=== PATIENT | male | born 1970 | race Caucasian/White ===

== ENCOUNTER 2019-07-13 15:06 | Inpatient (IN) | payer OTHER ==
[~2019-07-13] VITALS: Ht 175.3 cm; Wt 86.5 kg
[2019-07-13] MEDS ORDERED: HYDROcodone/APAP 5/325 TABLET PO PRN (16:00)
[2019-07-13] MEDS ORDERED: GABAPENTIN 300 MG CAPSULE PO PRN (16:00)
[2019-07-13] MEDS ORDERED: ONDANSETRON 2MG/ML, 2ML IVPush PRN (16:00)
[2019-07-13] MEDS ORDERED: morphine SULFATE 10 MG/ML, 1ML IVPush PRN (16:00)
[2019-07-13] MEDS ORDERED: ONDANSETRON ODT 4 MG PO PRN (16:00)
[2019-07-13] MEDS ORDERED: hydrALAzine 20 MG/ML, 1ML IVPush PRN (16:00)
[2019-07-13] MEDS ORDERED: BACLOFEN 10 MG TABLET PO PRN (16:00)
[2019-07-13] MEDS ORDERED: PLEASE ENTER HEIGHT AND WEIGHT MC SCH (16:30)
[2019-07-13 16:33] VITALS: BP 159/100
[2019-07-13 16:49] LABS: BASOPHILS # (AUTO) 0.02 x10^3/uL (0-0.1); BASOPHILS % (AUTO) 0 % (0-1); EOSINOPHILS # (AUTO) 0.22 x10^3/uL (0-0.4); EOSINOPHILS % (AUTO) 4 % (1-7); LYMPHOCYTES # (AUTO) 1.77 x10^3/uL (1-3.4); LYMPHOCYTES % (AUTO) 29 % (22-44); MD NO; MEAN CORPUSCULAR HEMOGLOBIN 30.5 pg (27.5-34.5); MEAN CORPUSCULAR HGB CONC 33.7 g/dL (33.2-36.2); MEAN CORPUSCULAR VOLUME 90.7 fL (81-97); MEAN PLATELET VOLUME 7.8 fL (7.4-10.4); MONOCYTES # (AUTO) 0.36 x10^3/uL (0.2-0.8); MONOCYTES % (AUTO) 6 % (2-9); NEUTROPHILS # (AUTO) 3.85 x10^3/uL (1.8-6.8); NEUTROPHILS % (AUTO) 62 % (42-75); PLATELET COUNT 307 x10^3/uL (130-400); RED CELL DISTRIBUTION WIDTH 13.7 % (9.4-14.8)
[2019-07-13 16:59] LABS: INTERNATIONAL NORMALIZED RATIO 1.02 (0.93-1.1); PROTHROMBIN TIME 10.8 Seconds (9.6-11.5)
[2019-07-13 17:00] LABS: ALANINE AMINOTRANSFERASE 29 U/L (12-78); ALBUMIN 4.5 g/dL (3.4-5.0); ANION GAP 5 mmol/L (5-15); CALCIUM 9.5 mg/dL (8.5-10.1); CHLORIDE 104 mmol/L (98-107); CREATININE 1.07 mg/dL (0.7-1.3)
[2019-07-13 17:03] LABS: ALKALINE PHOSPHATASE 86 U/L (45-117); BILIRUBIN,TOTAL 0.5 mg/dL (0.2-1.0); TOTAL PROTEIN 8.4 g/dL (6.4-8.2)
[2019-07-13 17:27] LABS: CULTURE INDICATED? NO; MICROSCOPIC NOT IND
[2019-07-13 19:04] VITALS: BP 136/96
[2019-07-13] MEDS ORDERED: OMNIPAQUE 350 MG/ML, 100ML BOTTLE ONE (20:07)
[2019-07-14 02:53] VITALS: BP 137/89
[2019-07-14 06:50] VITALS: BP 146/93
[2019-07-14] MEDS ORDERED: GADOTERATE 10 MMOL/20 ML SYR ONE (09:16)
[2019-07-14] MEDS ORDERED: MIDAZOLAM 1 MG/ML, 5ML ONE (09:36)
[2019-07-14] MEDS ORDERED: FENTANYL PF 100 MCG/2ML ONE (09:36)
[2019-07-14] MEDS ORDERED: NALOXONE 1 MG/ML, 2ML ONE (09:37)
[2019-07-14] MEDS ORDERED: FLUMAZENIL 0.1 MG/1 ML, 5ML ONE (09:37)
[2019-07-14] MEDS ORDERED: POLYETHYLENE GLYCOL 17 GM PACKET PO PRN (11:30)
[2019-07-14] MEDS ORDERED: SENNA/DOCUSATE TABLET PO PRN (11:30)
[2019-07-14 13:14] VITALS: BP 136/83
[2019-07-14] MEDS: ACETAMINOPHEN 325 MG TABLET PO PRN (18:01)
[2019-07-14] MEDS ORDERED: BISACODYL 10 MG SUPP ONE (19:41)
[2019-07-14 19:46] VITALS: BP 142/73
[2019-07-14] MEDS ORDERED: BISACODYL 10 MG SUPP PR PRN (20:00)
[2019-07-15 02:15] VITALS: BP 142/95
[2019-07-15 04:35] LABS: BASOPHILS # (AUTO) 0.02 x10^3/uL (0-0.1); BASOPHILS % (AUTO) 0 % (0-1); EOSINOPHILS # (AUTO) 0.23 x10^3/uL (0-0.4); EOSINOPHILS % (AUTO) 4 % (1-7); LYMPHOCYTES # (AUTO) 1.83 x10^3/uL (1-3.4); LYMPHOCYTES % (AUTO) 32 % (22-44); MD NO; MEAN CORPUSCULAR HEMOGLOBIN 30.4 pg (27.5-34.5); MEAN CORPUSCULAR HGB CONC 33.5 g/dL (33.2-36.2); MEAN CORPUSCULAR VOLUME 90.7 fL (81-97); MEAN PLATELET VOLUME 7.5 fL (7.4-10.4); MONOCYTES # (AUTO) 0.37 x10^3/uL (0.2-0.8); MONOCYTES % (AUTO) 7 % (2-9); NEUTROPHILS # (AUTO) 3.27 x10^3/uL (1.8-6.8); NEUTROPHILS % (AUTO) 57 % (42-75); PLATELET COUNT 260 x10^3/uL (130-400); RED BLOOD COUNT 5.19 x10^6/uL (4.38-5.82); RED CELL DISTRIBUTION WIDTH 13.3 % (9.4-14.8)
[2019-07-15 04:44] LABS: ANION GAP 5 mmol/L (5-15); CALCIUM 9.2 mg/dL (8.5-10.1); CHLORIDE 106 mmol/L (98-107); CREATININE 1.03 mg/dL (0.7-1.3)
[2019-07-15 07:17] VITALS: BP 132/85
[2019-07-15] MEDS: ACETAMINOPHEN 325 MG TABLET PO PRN (07:29)
[2019-07-15] MEDS ORDERED: MAGNESIUM CITRATE 300ML ORAL SOL PO PRN (08:30)
[2019-07-15] MEDS ORDERED: SENN-193 PO (09:34)
== END 2019-07-15 11:00 | disposition home or self-care (01) | DRG 55 ==
LOC: 4NW 16:11
PROVIDERS: ADMIT Hospitalist; ATTEND Family Medicine
DX: D33.4 Benign neoplasm of spinal cord (principal); G95.20 Unspecified cord compression; M48.54XA Collapsed vertebra, not elsewhere classified, thoracic region, initial encounter for fracture; M51.04 Intervertebral disc disorders with myelopathy, thoracic region; G95.9 Disease of spinal cord, unspecified; K59.00 Constipation, unspecified; M54.10 Radiculopathy, site unspecified; Z80.8 Family history of malignant neoplasm of other organs or systems; Z82.0 Family history of epilepsy and other diseases of the nervous system; Z80.0 Family history of malignant neoplasm of digestive organs
CPT/HCPCS: 32400; 36415; 71260; 72157; 74177; 77012; 80048; 80053; 81003; 83615; 85025; 85610; 88305; 99156; 99157; G0378; J2250; J3010; Q9967; A9575; J2310

== ENCOUNTER 2019-07-28 09:34 | Outpatient (CLI) | payer OTHER ==
[~2019-07-28 09:34] MED LIST: SENN-193 PO
== END 2019-07-28 23:59 | disposition home or self-care (01) ==
LOC: ROC 09:34
PROVIDERS: ATTEND Radiology Radiation Oncology
DX: C83.58 Lymphoblastic (diffuse) lymphoma, lymph nodes of multiple sites (principal)
CPT/HCPCS: 99214; G0463

== ENCOUNTER 2019-07-28 15:59 | Inpatient (IN) | payer OTHER ==
[~2019-07-28] VITALS: Ht 175.3 cm; Wt 83.5 kg
[2019-07-28 16:46] VITALS: BP 146/101
[2019-07-28 16:50] LABS: BASOPHILS # (AUTO) 0.01 x10^3/uL (0-0.1); BASOPHILS % (AUTO) 0 % (0-1); EOSINOPHILS # (AUTO) 0.18 x10^3/uL (0-0.4); EOSINOPHILS % (AUTO) 2 % (1-7); LYMPHOCYTES # (AUTO) 1.99 x10^3/uL (1-3.4); LYMPHOCYTES % (AUTO) 26 % (22-44); MD NO; MEAN CORPUSCULAR HEMOGLOBIN 30.7 pg (27.5-34.5); MEAN CORPUSCULAR HGB CONC 33.5 g/dL (33.2-36.2); MEAN CORPUSCULAR VOLUME 91.5 fL (81-97); MONOCYTES # (AUTO) 0.45 x10^3/uL (0.2-0.8); MONOCYTES % (AUTO) 6 % (2-9); NEUTROPHILS # (AUTO) 5.19 x10^3/uL (1.8-6.8); NEUTROPHILS % (AUTO) 66 % (42-75); PLATELET COUNT 290 x10^3/uL (130-400); RED BLOOD COUNT 5.47 x10^6/uL (4.38-5.82); RED CELL DISTRIBUTION WIDTH 13.5 % (9.4-14.8)
[2019-07-28] MEDS ORDERED: ONDANSETRON 2MG/ML, 2ML IVPush PRN (17:00)
[2019-07-28 17:02] LABS: ALBUMIN 4.5 g/dL (3.4-5.0); ANION GAP 4 mmol/L (5-15); CALCIUM 9.4 mg/dL (8.5-10.1); CHLORIDE 105 mmol/L (98-107)
[2019-07-28 17:03] LABS: INTERNATIONAL NORMALIZED RATIO 1.03 (0.93-1.1); PROTHROMBIN TIME 10.9 Seconds (9.6-11.5)
[2019-07-28 17:05] LABS: ALANINE AMINOTRANSFERASE 34 U/L (12-78); ALKALINE PHOSPHATASE 96 U/L (45-117); BILIRUBIN,TOTAL 0.4 mg/dL (0.2-1.0); CREATININE 1.05 mg/dL (0.7-1.3); TOTAL PROTEIN 8.3 g/dL (6.4-8.2)
[2019-07-28] MEDS: ENOXAPARIN 40 MG/0.4 ML SQ SCH (17:30)
[2019-07-28 18:30] VITALS: BP 147/93
[2019-07-28] MEDS: ACETAMINOPHEN 325 MG TABLET PO PRN (19:03)
[2019-07-28] MEDS: LACTULOSE 10 GM/15 ML UDC PO SCH (19:54)
[2019-07-29 04:00] VITALS: BP 126/86
[2019-07-29 07:24] VITALS: BP 132/85
[2019-07-29] MEDS: LACTULOSE 10 GM/15 ML UDC PO SCH ×2 (08:30→20:45)
[2019-07-29] MEDS: SENNA/DOCUSATE TABLET PO SCH (08:30)
[2019-07-29] MEDS ORDERED: LIDOCAINE 1%, 10ML ONE (09:14)
[2019-07-29] MEDS ORDERED: NALOXONE 1 MG/ML, 2ML ONE (09:15)
[2019-07-29] MEDS ORDERED: FLUMAZENIL 0.1 MG/1 ML, 5ML ONE (09:15)
[2019-07-29] MEDS ORDERED: FENTANYL PF 100 MCG/2ML ONE (09:15)
[2019-07-29] MEDS ORDERED: MIDAZOLAM 1 MG/ML, 5ML ONE (09:15)
[2019-07-29] MEDS ORDERED: TRAZODONE 50MG TABLET PO PRN (10:00)
[2019-07-29] MEDS: DEXAMETHASONE 4 MG TABLET PO SCH ×2 (11:57→17:27)
[2019-07-29] MEDS: ACETAMINOPHEN 325 MG TABLET PO PRN (14:40)
[2019-07-29 14:41] VITALS: BP 118/79
[2019-07-29] MEDS: ENOXAPARIN 40 MG/0.4 ML SQ SCH (16:21)
[2019-07-29 19:02] VITALS: BP 147/97
[2019-07-29] MEDS: OXYcodone IR 5MG TABLET PO PRN (20:46)
[2019-07-30 01:42] VITALS: BP 149/97
[2019-07-30] MEDS: OXYcodone IR 5MG TABLET PO PRN (08:04)
[2019-07-30] MEDS ORDERED: MAGNESIUM CITRATE 300ML ORAL SOL PO ONE (08:30)
[2019-07-30] MEDS ORDERED: GADOTERATE 10 MMOL/20 ML SYR ONE (09:18)
[2019-07-30 10:38] VITALS: BP 144/91
[2019-07-30] MEDS: LACTULOSE 10 GM/15 ML UDC PO SCH (11:15)
[2019-07-30] MEDS: SENNA/DOCUSATE TABLET PO SCH (11:16)
[2019-07-30] MEDS: DEXAMETHASONE 4 MG TABLET PO SCH ×2 (11:20→12:00)
[2019-07-30 13:36] VITALS: BP 136/89
[2019-07-30] MEDS ORDERED: DEXA4TAB66 PO (15:23)
== END 2019-07-30 16:50 | disposition home or self-care (01) | DRG 841 ==
LOC: 3N 15:59
PROVIDERS: ADMIT Hospitalist; ATTEND Hospitalist
PROC: 009 Central Nervous System and Cranial Nerves, Drainage (ICD-10-PCS; principal; 2019-07-29)
PROC: 07DR3ZX Extraction of Iliac Bone Marrow, Percutaneous Approach, Diagnostic (ICD-10-PCS; 2019-07-29)
PROC: 009U3ZX Drainage of Spinal Canal, Percutaneous Approach, Diagnostic (ICD-10-PCS; 2019-07-29)
PROC: B01B1ZZ Fluoroscopy of Spinal Cord using Low Osmolar Contrast (ICD-10-PCS; 2019-07-29)
DX: C85.80 Other specified types of non-Hodgkin lymphoma, unspecified site (principal); M48.54XA Collapsed vertebra, not elsewhere classified, thoracic region, initial encounter for fracture; D49.2 Neoplasm of unspecified behavior of bone, soft tissue, and skin; G47.00 Insomnia, unspecified; K59.00 Constipation, unspecified; Z80.8 Family history of malignant neoplasm of other organs or systems
CPT/HCPCS: 36415; 84155; 87806; J3490; 20206; 38222; 62270; 62328; 70553; 72156; 72158; 77012; 80053; 83615; 84165; 85025; 85060; 85097; 85610; 86704; 86706; 86708; 86803; 87340; 88108; 88237; 88264; 88280; 88305; 88311; 88313; 99156; 99157; G0378; J2250; J3010; A9575; G0475; J2310

== ENCOUNTER → 2019-09-02 | Outpatient (CLI) | payer OTHER ==
[~2019-09-02] MED LIST changes: +DEXA4TAB66 PO; +GADOTERATE 10 MMOL/20 ML VIAL ONE
== END | disposition home or self-care (01) ==
LOC: CFH 09:27
PROVIDERS: ATTEND Radiology Radiation Oncology
DX: C83.09 Small cell B-cell lymphoma, extranodal and solid organ sites (principal); D49.2 Neoplasm of unspecified behavior of bone, soft tissue, and skin; M51.44 Schmorl's nodes, thoracic region; M43.8X4 Other specified deforming dorsopathies, thoracic region
CPT/HCPCS: 72157; A9575

== ENCOUNTER 2019-09-03 08:25 | Outpatient (CLI) | payer OTHER ==
[~2019-09-03 08:25] MED LIST changes: -GADOTERATE 10 MMOL/20 ML VIAL ONE
== END 2019-09-03 23:59 | disposition home or self-care (01) ==
LOC: ROC 08:25
PROVIDERS: ATTEND Radiology Radiation Oncology
DX: C83.09 Small cell B-cell lymphoma, extranodal and solid organ sites (principal); D49.2 Neoplasm of unspecified behavior of bone, soft tissue, and skin
CPT/HCPCS: 99212; G0463

== ENCOUNTER → 2019-09-23 | Outpatient (CLI) | payer OTHER | END | disposition home or self-care (01) | LOC: PETCFH 09:33 | PROVIDERS: ATTEND Internal Medicine Hematology & Oncology | DX: C83.09 Small cell B-cell lymphoma, extranodal and solid organ sites (principal); M43.8X4 Other specified deforming dorsopathies, thoracic region | CPT/HCPCS: 78815; A9552 ==